=== PATIENT | male | born 1965 | race Caucasian/White ===

== ENCOUNTER 2021-11-15 12:13 | Day surgery (SDC) | payer BC ==
[2021-11-14 11:09] VITALS: BMI 30.5
[2021-11-15 12:30] VITALS: RESP 18
[2021-11-15] MEDS ORDERED: PROPOFOL 40 ML ONE (13:43)
[2021-11-15 16:51] VITALS: TEMP 97.8
[2021-11-15 16:52] VITALS: BP 135/79; PULSE 82
== END 2021-11-15 15:00 | disposition home or self-care (01) ==
LOC: FASU-ENDO 12:13 → EDBD 13:30 → FASU-ENDO 15:00
PROVIDERS: ATTEND Internal Medicine Gastroenterology
PROC: 0DJD8ZZ Inspection of Lower Intestinal Tract, Via Natural or Artificial Opening Endoscopic (ICD-10-PCS; principal; 2021-11-15 14:15)
DX: Z12.11 Encounter for screening for malignant neoplasm of colon (principal); K57.30 Diverticulosis of large intestine without perforation or abscess without bleeding; K64.1 Second degree hemorrhoids